=== PATIENT | female | born 1950 | race Caucasian/White ===

== ENCOUNTER 2022-04-07 01:36 | Inpatient (IN) | payer OTHER, MEDICAID ==
[~2022-04-07] VITALS: Ht 172.7 cm; Wt 94.0 kg
[2022-04-07] VITALS (10 sets, daily range): BP systolic 58–151; BP diastolic 30–95
[~2022-04-07 01:36] MED LIST: ALBU1.257 NEB; ALEN70TA74 PO; ALPR0.5T7 PO; BECL0.07 INH; BUPR75TA10 PO; CELE1CAP8 PO; CHOL500023 PO; COMIH INH; HYDR-531 PO; IPRA0.035; NICO21DI24 TD; PAR20T PO; SERDISK IN; TOPI50TA53 PO; TRAZ100T3 PO
[2022-04-07] MEDS ORDERED: MIDAZOLAM HCL 5 MG/ML-1ML VIAL IV ONE (01:45)
[2022-04-07] MEDS: DOBUTamine 1000MCG/ML 250 ML IV SCH ×3 (01:45→13:54)
[2022-04-07] MEDS ORDERED: TERBUTALINE SULFATE 1 MG/ML 1ML VIAL SC ONE (01:45)
[2022-04-07] MEDS ORDERED: methylPREDNISolone SOD SUCC 125 MG/2 ML VL ONE (01:47)
[2022-04-07] MEDS ORDERED: DOBUTamine 1000MCG/ML 250 ML IV ONE (01:52)
[2022-04-07] MEDS ORDERED: IODIXANOL 320MG/ML 100ML BTL IV ONE (01:55)
[2022-04-07 02:22] LABS: Albumin 2.9 g/dL (3.4-5.0); Calcium 9.2 mg/dL (8.5-10.1)
[2022-04-07 02:23] LABS: Hematocrit 45.4 % (36.0-46.0); Hemoglobin 14.2 g/dL (12.2-16.2); Mean Corpuscular Hemoglobin 29.2 pg (28.0-32.0); Mean Corpuscular Hgb Conc. 31.2 g/dL (32.0-36.0); Mean Corpuscular Volume 93.8 fL (80.0-100.0); Red Blood Cells 4.85 10^6/uL (4.0-5.20); Red Cell Distribution Width 15.3 % (11.8-14.3); White Blood Cell 12.7 10^3/uL (4.4-10.8)
[2022-04-07 02:25] LABS: BUN/Creatinine Ratio 13.1; Bilirubin, Total 0.6 mg/dL (0.2-1.0); Total Protein 6.5 g/dL (6.4-8.2)
[2022-04-07 02:31] LABS: Basophils % (manual) 0 (0.0-2.0); Blast Cells 0; Eosinophils % (manual) 0 (0-7); Promyelocytes % 0; Reactive Lymphocytes 0
[2022-04-07] MEDS: MIDAZOLAM DRIP 50 mg/50mL 50 ML IV SCH ×2 (03:15→20:49)
[2022-04-07] MEDS ORDERED: methylPREDNISolone SOD SUCC 125 MG/2 ML VL IV ONE (03:45)
[2022-04-07] MEDS ORDERED: PIPERACILLIN-TAZOB 3.375GM 100 ML IV ONE (04:00)
[2022-04-07] MEDS ORDERED: VANCOMYCIN 1GM/250ML 250 ML IV ONE (04:00)
[2022-04-07] MEDS ORDERED: VANCOMYCIN PER PHARMACY 0 MG IV SCH (04:15)
[2022-04-07] MEDS: SODIUM CHLORIDE 0.9% 1,000 ML IV SCH ×5 (04:15→22:35)
[2022-04-07] MEDS ORDERED: MORPHINE SULFATE INJ 2 MG/ml SYRG IV PRN (04:15)
[2022-04-07] MEDS ORDERED: ONDANSETRON HCL 4 MG/2 ML VIAL IV PRN (04:15)
[2022-04-07] MEDS ORDERED: ACETAMINOPHEN 325 MG TAB PO PRN (04:15)
[2022-04-07 04:21] LABS: Band Neutrophils % (manual) 15; Lymphocytes % (manual) 31 (10.0-50.0); Metamyelocytes % 1; Monocytes % (manual) 8 (0-12); Myelocytes % 1
[2022-04-07 05:11] LABS: Lactic Acid w/Reflex 5.1 mmol/L (0.4-2.0)
[2022-04-07] MEDS ORDERED: PIPERACILLIN-TAZOB 3.375GM 100 ML IV SCH (06:00)
[2022-04-07 06:40] LABS: Basophils # (auto) 0.1 10 ^3/uL (0-0.2); Basophils % (auto) 0.5 % (0.0-2.0); Eosinophils # (auto) 0 10 ^3/uL (0-0.8); Hematocrit 46.6 % (36.0-46.0); Hemoglobin 15.1 g/dL (12.2-16.2); Lymphocytes # (auto) 0.4 10 ^3/uL (0.4-5.4); Lymphocytes % (auto) 3.9 % (10.0-50.0); Mean Corpuscular Hgb Conc. 32.5 g/dL (32.0-36.0); Mean Corpuscular Volume 92.2 fL (80.0-100.0); Monocytes # (auto) 0.7 10 ^3/uL (0-1.3); Monocytes % (auto) 7.1 % (0.0-12.0); Neutrophils # (auto) 9.2 10 ^3/uL (1.6-8.6); Neutrophils % (auto) 88.5 % (37.0-80.0); Nucleated Red Blood Cells % 0.1 %; Red Blood Cells 5.06 10^6/uL (4.0-5.20); Red Cell Distribution Width 15.4 % (11.8-14.3); White Blood Cell 10.4 10^3/uL (4.4-10.8)
[2022-04-07 06:57] LABS: Potassium 3.8 mmol/L (3.5-5.1)
[2022-04-07] MEDS ORDERED: levoFLOXacin 500MG 100 ML IV ONE (07:15)
[2022-04-07 07:41] LABS: Urine Bacteria FEW /hpf (None Seen); Urine Blood 3+ /uL (Negative); Urine WBC 16 /hpf (0 - 5)
[2022-04-07] MEDS ORDERED: IPRATROPIUM BROM 0.5 MG/2.5ML INH SOL NEB PRN (08:45)
[2022-04-07] MEDS ORDERED: ALBUTEROL SULF 2.5 MG/0.5ML(0.5%) NEB SOLN NEB PRN (08:45)
[2022-04-07] MEDS: FUROSEMIDE 20 MG/2 ML VIAL IV SCH (10:39)
[2022-04-07] MEDS: methylPREDNISolone SOD SUCC 40 MG/ML VL IV SCH ×2 (12:10→21:00)
[2022-04-07] MEDS ORDERED: ACETAMINOPHEN 650 mg PER 20.3 mL UD GT PRN (13:15)
[2022-04-07] MEDS: NOREPINEPHRINE 8 MG/250ML KIT 250 ML IV SCH (13:15)
[2022-04-07] MEDS: fentaNYL Drip 2500mCg/250mlNS 250 ML IV SCH ×2 (13:44→15:12)
[2022-04-07] MEDS: IPRATROPIUM BROM 0.5 MG/2.5ML INH SOL NEB SCH (18:54)
[2022-04-07] MEDS: ALBUTEROL SULF 2.5 MG/0.5ML(0.5%) NEB SOLN NEB SCH (18:54)
[2022-04-08] VITALS (72 sets, daily range): BP systolic 88–134; BP diastolic 45–68
[2022-04-08] MEDS: methylPREDNISolone SOD SUCC 40 MG/ML VL IV SCH ×3 (00:22→21:48)
[2022-04-08] MEDS: IPRATROPIUM BROM 0.5 MG/2.5ML INH SOL NEB SCH ×4 (00:53→19:09)
[2022-04-08] MEDS: ALBUTEROL SULF 2.5 MG/0.5ML(0.5%) NEB SOLN NEB SCH ×4 (00:53→19:09)
[2022-04-08] MEDS: NOREPINEPHRINE 8 MG/250ML KIT 250 ML IV SCH (03:04)
[2022-04-08 04:34] LABS: Basophils # (auto) 0 10 ^3/uL (0-0.2); Eosinophils # (auto) 0 10 ^3/uL (0-0.8); Hematocrit 41.7 % (36.0-46.0); Hemoglobin 13.5 g/dL (12.2-16.2); Lymphocytes # (auto) 0.4 10 ^3/uL (0.4-5.4); Lymphocytes % (auto) 2.9 % (10.0-50.0); Mean Corpuscular Hemoglobin 29.3 pg (28.0-32.0); Mean Corpuscular Hgb Conc. 32.3 g/dL (32.0-36.0); Mean Corpuscular Volume 90.7 fL (80.0-100.0); Monocytes # (auto) 0.6 10 ^3/uL (0-1.3); Monocytes % (auto) 4.8 % (0.0-12.0); Neutrophils # (auto) 12.4 10 ^3/uL (1.6-8.6); Neutrophils % (auto) 92.3 % (37.0-80.0); Red Cell Distribution Width 15.1 % (11.8-14.3); White Blood Cell 13.4 10^3/uL (4.4-10.8)
[2022-04-08 04:49] LABS: INR 1.07 (0.9-1.15); Partial Thromboplastin Time 34.9 sec (24.6-33.4)
[2022-04-08 04:53] LABS: Potassium 4.2 mmol/L (3.5-5.1)
[2022-04-08 04:55] LABS: Albumin 2.8 g/dL (3.4-5.0); BUN/Creatinine Ratio 13.4; Calcium 7.7 mg/dL (8.5-10.1)
[2022-04-08 04:58] LABS: Bilirubin, Total 0.6 mg/dL (0.2-1.0)
[2022-04-08] MEDS ORDERED: levoFLOXacin 500MG 100 ML IV SCH (10:00)
[2022-04-08] MEDS: SODIUM CHLORIDE 0.9% 1,000 ML IV SCH ×2 (10:00→14:15)
[2022-04-08] MEDS: FUROSEMIDE 20 MG/2 ML VIAL IV SCH (10:56)
[2022-04-08] MEDS ORDERED: PANTOPRAZOLE 40 MG/10 ML VIAL INJ IV ONE (11:45)
[2022-04-08] MEDS ORDERED: VANCOMYCIN 500 MG in D5W 5% 100 ML IV ONE (13:15)
[2022-04-08] MEDS ORDERED: ALBUMIN 25% 100 ML IV ONE (14:15)
[2022-04-08 14:59] LABS: Protein, Urine 156.9 mg/dL (0.0-11.9)
[2022-04-09] VITALS (105 sets, daily range): BP systolic 87–138; BP diastolic 40–73
[2022-04-09] MEDS: SODIUM CHLORIDE 0.9% 1,000 ML IV SCH ×2 (00:15→09:39)
[2022-04-09] MEDS: ALBUTEROL SULF 2.5 MG/0.5ML(0.5%) NEB SOLN NEB SCH ×3 (00:39→18:21)
[2022-04-09] MEDS: IPRATROPIUM BROM 0.5 MG/2.5ML INH SOL NEB SCH ×3 (00:39→18:21)
[2022-04-09] MEDS: MIDAZOLAM DRIP 50 mg/50mL 50 ML IV SCH (03:15)
[2022-04-09 04:10] LABS: Basophils # (auto) 0 10 ^3/uL (0-0.2); Basophils % (auto) 0.1 % (0.0-2.0); Eosinophils # (auto) 0 10 ^3/uL (0-0.8); Hematocrit 34.7 % (36.0-46.0); Hemoglobin 11.2 g/dL (12.2-16.2); Lymphocytes # (auto) 0.2 10 ^3/uL (0.4-5.4); Mean Corpuscular Hemoglobin 29.2 pg (28.0-32.0); Mean Corpuscular Hgb Conc. 32.2 g/dL (32.0-36.0); Mean Corpuscular Volume 90.6 fL (80.0-100.0); Monocytes # (auto) 0.5 10 ^3/uL (0-1.3); Monocytes % (auto) 5.3 % (0.0-12.0); Neutrophils # (auto) 8.7 10 ^3/uL (1.6-8.6); Neutrophils % (auto) 92.6 % (37.0-80.0); Nucleated Red Blood Cells % 0.1 %; Red Blood Cells 3.83 10^6/uL (4.0-5.20); Red Cell Distribution Width 15.4 % (11.8-14.3); White Blood Cell 9.4 10^3/uL (4.4-10.8)
[2022-04-09 04:35] LABS: Calcium 7.7 mg/dL (8.5-10.1); Potassium 3.9 mmol/L (3.5-5.1)
[2022-04-09 04:40] LABS: BUN/Creatinine Ratio 12.4; Bilirubin, Total 0.6 mg/dL (0.2-1.0); Total Protein 6.5 g/dL (6.4-8.2)
[2022-04-09] MEDS: NOREPINEPHRINE 8 MG/250ML KIT 250 ML IV SCH (07:27)
[2022-04-09] MEDS ORDERED: AMIODARONE HCL 150 MG in D5W 5% 100 ML IV ONE (08:30)
[2022-04-09] MEDS ORDERED: AMIODARONE 450mg/250ml AE 250 ML IV SCH (08:45)
[2022-04-09] MEDS ORDERED: DIGOXIN (250MCG/ML) 2 ML AMPULE IV ONE (09:00)
[2022-04-09] MEDS: fentaNYL Drip 2500mCg/250mlNS 250 ML IV SCH (09:30)
[2022-04-09] MEDS: methylPREDNISolone SOD SUCC 40 MG/ML VL IV SCH ×2 (09:36→22:03)
[2022-04-09] MEDS: DOBUTamine 1000MCG/ML 250 ML IV SCH (09:37)
[2022-04-09] MEDS: PANTOPRAZOLE 40 MG/10 ML VIAL INJ IV SCH (09:37)
[2022-04-09] MEDS: ENOXAPARIN SOD 30 MG/0.3 ML SYRINGE SC SCH (09:38)
[2022-04-09] MEDS ORDERED: levoFLOXacin 750MG 150 ML IV SCH (10:00)
[2022-04-09] MEDS ORDERED: SODIUM BICARBONATE 8.4 % INJ 50ML VIAL IV STA ×2 (10:03→13:34)
[2022-04-09] MEDS ORDERED: SODIUM BICARB 50ML SYR 75 ML in SOD CHL 0.45% 1,000 ML IV SCH (13:00)
[2022-04-09] MEDS ORDERED: BUMETANIDE 2.5mg/10ml (0.25 mg/ml) INJ IV ONE (13:15)
[2022-04-09] MEDS: SODIUM BICARB 50ML SYR 75 ML in SOD CHL 0.45% 1,000 ML IV SCH (15:43)
[2022-04-09] MEDS: AMIODARONE 450mg/250ml AE 250 ML IV SCH (15:44)
[2022-04-09] MEDS ORDERED: SODIUM BICARBONATE 8.4 % INJ 50ML VIAL IV ONE (18:00)
[2022-04-10] VITALS (108 sets, daily range): BP systolic 59–129; BP diastolic 28–82
[2022-04-10] MEDS: ALBUTEROL SULF 2.5 MG/0.5ML(0.5%) NEB SOLN NEB SCH ×4 (00:15→18:33)
[2022-04-10] MEDS: IPRATROPIUM BROM 0.5 MG/2.5ML INH SOL NEB SCH ×4 (00:15→18:33)
[2022-04-10] MEDS: SODIUM BICARB 50ML SYR 75 ML in SOD CHL 0.45% 1,000 ML IV SCH ×3 (01:40→21:55)
[2022-04-10] MEDS: MIDAZOLAM DRIP 50 mg/50mL 50 ML IV SCH (03:15)
[2022-04-10 04:07] LABS: Hematocrit 37.3 % (36.0-46.0); Hemoglobin 12.4 g/dL (12.2-16.2); Mean Corpuscular Hemoglobin 29.7 pg (28.0-32.0); Mean Corpuscular Hgb Conc. 33.3 g/dL (32.0-36.0); Mean Corpuscular Volume 89.2 fL (80.0-100.0); Red Blood Cells 4.19 10^6/uL (4.0-5.20); Red Cell Distribution Width 15.5 % (11.8-14.3)
[2022-04-10] MEDS: NOREPINEPHRINE 8 MG/250ML KIT 250 ML IV SCH ×2 (04:15→13:20)
[2022-04-10 04:24] LABS: Potassium 3.7 mmol/L (3.5-5.1)
[2022-04-10 04:25] LABS: Basophils % (manual) 0 (0.0-2.0); Blast Cells 0; Eosinophils % (manual) 0 (0-7); Metamyelocytes % 0; Myelocytes % 0; Promyelocytes % 0; Reactive Lymphocytes 0
[2022-04-10 06:00] LABS: Band Neutrophils % (manual) 19; Lymphocytes % (manual) 5 (10.0-50.0); Monocytes % (manual) 6 (0-12)
[2022-04-10] MEDS: DOBUTamine 1000MCG/ML 250 ML IV SCH (06:18)
[2022-04-10] MEDS: AMIODARONE 450mg/250ml AE 250 ML IV SCH ×2 (08:17→20:45)
[2022-04-10] MEDS: FUROSEMIDE INJECTION 100 MG in SODIUM CHL 0.9% 100 ML IV SCH ×3 (08:58→19:46)
[2022-04-10] MEDS: fentaNYL Drip 2500mCg/250mlNS 250 ML IV SCH (09:30)
[2022-04-10] MEDS: PANTOPRAZOLE 40 MG/10 ML VIAL INJ IV SCH (10:41)
[2022-04-10] MEDS: methylPREDNISolone SOD SUCC 40 MG/ML VL IV SCH ×2 (10:41→21:55)
[2022-04-10] MEDS: ENOXAPARIN SOD 30 MG/0.3 ML SYRINGE SC SCH (10:41)
[2022-04-11] VITALS (106 sets, daily range): BP systolic 103–148; BP diastolic 43–65
[2022-04-11] MEDS: IPRATROPIUM BROM 0.5 MG/2.5ML INH SOL NEB SCH ×4 (00:11→18:46)
[2022-04-11] MEDS: ALBUTEROL SULF 2.5 MG/0.5ML(0.5%) NEB SOLN NEB SCH ×4 (00:11→18:46)
[2022-04-11] MEDS: NOREPINEPHRINE 8 MG/250ML KIT 250 ML IV SCH ×2 (02:10→12:32)
[2022-04-11] MEDS: AMIODARONE 450mg/250ml AE 250 ML IV SCH ×2 (02:50→15:08)
[2022-04-11] MEDS: MIDAZOLAM DRIP 50 mg/50mL 50 ML IV SCH (03:15)
[2022-04-11] MEDS: DOBUTamine 1000MCG/ML 250 ML IV SCH ×2 (03:36→22:53)
[2022-04-11 04:15] LABS: Basophils # (auto) 0 10 ^3/uL (0-0.2); Eosinophils # (auto) 0 10 ^3/uL (0-0.8); Eosinophils % (auto) 0.2 % (0.0-7.0); Hematocrit 35.2 % (36.0-46.0); Hemoglobin 11.2 g/dL (12.2-16.2); Lymphocytes # (auto) 0.2 10 ^3/uL (0.4-5.4); Lymphocytes % (auto) 1.5 % (10.0-50.0); Mean Corpuscular Hemoglobin 28.4 pg (28.0-32.0); Mean Corpuscular Hgb Conc. 31.7 g/dL (32.0-36.0); Mean Corpuscular Volume 89.6 fL (80.0-100.0); Monocytes # (auto) 0.5 10 ^3/uL (0-1.3); Monocytes % (auto) 4.2 % (0.0-12.0); Neutrophils # (auto) 10.7 10 ^3/uL (1.6-8.6); Neutrophils % (auto) 94.1 % (37.0-80.0); Nucleated Red Blood Cells % 0.1 %; Red Blood Cells 3.93 10^6/uL (4.0-5.20); Red Cell Distribution Width 15.3 % (11.8-14.3); White Blood Cell 11.4 10^3/uL (4.4-10.8)
[2022-04-11] MEDS: FUROSEMIDE INJECTION 100 MG in SODIUM CHL 0.9% 100 ML IV SCH ×2 (04:27→14:52)
[2022-04-11 04:31] LABS: Potassium 4.1 mmol/L (3.5-5.1)
[2022-04-11 04:39] LABS: BUN/Creatinine Ratio 10.7; Calcium 7.7 mg/dL (8.5-10.1)
[2022-04-11] MEDS: fentaNYL Drip 2500mCg/250mlNS 250 ML IV SCH (09:30)
[2022-04-11] MEDS: ENOXAPARIN SOD 30 MG/0.3 ML SYRINGE SC SCH (09:36)
[2022-04-11] MEDS: methylPREDNISolone SOD SUCC 40 MG/ML VL IV SCH ×2 (09:36→21:36)
[2022-04-11] MEDS: PANTOPRAZOLE 40 MG/10 ML VIAL INJ IV SCH (09:36)
[2022-04-11] MEDS: SODIUM BICARB 50ML SYR 75 ML in SOD CHL 0.45% 1,000 ML IV SCH ×2 (09:37→21:36)
[2022-04-11] MEDS: levoFLOXacin 500MG 100 ML IV SCH (09:48)
[2022-04-12] VITALS (104 sets, daily range): BP systolic 113–173; BP diastolic 42–77
[2022-04-12] MEDS: IPRATROPIUM BROM 0.5 MG/2.5ML INH SOL NEB SCH ×4 (00:14→18:14)
[2022-04-12] MEDS: ALBUTEROL SULF 2.5 MG/0.5ML(0.5%) NEB SOLN NEB SCH ×4 (00:14→18:14)
[2022-04-12] MEDS: FUROSEMIDE INJECTION 100 MG in SODIUM CHL 0.9% 100 ML IV SCH ×3 (00:38→19:30)
[2022-04-12] MEDS: MIDAZOLAM DRIP 50 mg/50mL 50 ML IV SCH (03:15)
[2022-04-12 03:32] LABS: Basophils # (auto) 0 10 ^3/uL (0-0.2); Eosinophils # (auto) 0 10 ^3/uL (0-0.8); Hematocrit 31.7 % (36.0-46.0); Hemoglobin 10.1 g/dL (12.2-16.2); Lymphocytes # (auto) 0.1 10 ^3/uL (0.4-5.4); Lymphocytes % (auto) 1.4 % (10.0-50.0); Mean Corpuscular Hemoglobin 28.4 pg (28.0-32.0); Mean Corpuscular Hgb Conc. 31.9 g/dL (32.0-36.0); Mean Corpuscular Volume 89.1 fL (80.0-100.0); Monocytes # (auto) 0.5 10 ^3/uL (0-1.3); Monocytes % (auto) 4.5 % (0.0-12.0); Neutrophils # (auto) 9.9 10 ^3/uL (1.6-8.6); Neutrophils % (auto) 94.1 % (37.0-80.0); Red Blood Cells 3.55 10^6/uL (4.0-5.20); Red Cell Distribution Width 15.3 % (11.8-14.3); White Blood Cell 10.5 10^3/uL (4.4-10.8)
[2022-04-12 04:00] LABS: BUN/Creatinine Ratio 12.2; Calcium 7.9 mg/dL (8.5-10.1); Potassium 4.5 mmol/L (3.5-5.1)
[2022-04-12] MEDS: SODIUM BICARB 50ML SYR 75 ML in SOD CHL 0.45% 1,000 ML IV SCH ×2 (06:15→08:01)
[2022-04-12] MEDS: AMIODARONE 450mg/250ml AE 250 ML IV SCH ×3 (06:55→22:32)
[2022-04-12] MEDS: fentaNYL Drip 2500mCg/250mlNS 250 ML IV SCH (09:30)
[2022-04-12] MEDS ORDERED: DIGOXIN (250MCG/ML) 2 ML AMPULE IV SCH (10:00)
[2022-04-12] MEDS: ENOXAPARIN SOD 30 MG/0.3 ML SYRINGE SC SCH (10:31)
[2022-04-12] MEDS: PANTOPRAZOLE 40 MG/10 ML VIAL INJ IV SCH (10:32)
[2022-04-12] MEDS: methylPREDNISolone SOD SUCC 40 MG/ML VL IV SCH (10:32)
[2022-04-12] MEDS ORDERED: SODIUM BICARB 50ML SYR 75 ML in SOD CHL 0.45% 1,000 ML IV SCH (11:15)
[2022-04-12] MEDS: NOREPINEPHRINE 8 MG/250ML KIT 250 ML IV SCH (13:15)
[2022-04-13] VITALS (84 sets, daily range): BP systolic 109–145; BP diastolic 44–74
[2022-04-13] MEDS: ALBUTEROL SULF 2.5 MG/0.5ML(0.5%) NEB SOLN NEB SCH ×4 (00:07→18:55)
[2022-04-13] MEDS: IPRATROPIUM BROM 0.5 MG/2.5ML INH SOL NEB SCH ×4 (00:07→18:55)
[2022-04-13] MEDS: MIDAZOLAM DRIP 50 mg/50mL 50 ML IV SCH (03:15)
[2022-04-13 03:58] LABS: Anion Gap 13 (5-15); BUN/Creatinine Ratio 14.4; Calcium 8.2 mg/dL (8.5-10.1); Carbon Dioxide 28 mmol/L (21-32); Chloride 93 mmol/L (98-107); GFR African American 8 mL/min; GFR Non-African American 7 mL/min; Glucose 318 mg/dL (74-106); Potassium 5.1 mmol/L (3.5-5.1); Sodium 134 mmol/L (136-145)
[2022-04-13 04:01] LABS: Basophils # (auto) 0 10 ^3/uL (0-0.2); Eosinophils # (auto) 0 10 ^3/uL (0-0.8); Hematocrit 31.9 % (36.0-46.0); Hemoglobin 10.3 g/dL (12.2-16.2); Lymphocytes # (auto) 0.2 10 ^3/uL (0.4-5.4); Mean Corpuscular Hemoglobin 29.9 pg (28.0-32.0); Mean Corpuscular Hgb Conc. 32.5 g/dL (32.0-36.0); Mean Corpuscular Volume 92.1 fL (80.0-100.0); Monocytes # (auto) 0.6 10 ^3/uL (0-1.3); Monocytes % (auto) 5.6 % (0.0-12.0); Neutrophils # (auto) 10.6 10 ^3/uL (1.6-8.6); Neutrophils % (auto) 92.4 % (37.0-80.0); Red Blood Cells 3.46 10^6/uL (4.0-5.20); Red Cell Distribution Width 15.4 % (11.8-14.3); White Blood Cell 11.4 10^3/uL (4.4-10.8)
[2022-04-13 05:02] LABS: Blood Urea Nitrogen 93 mg/dL (7-18)
[2022-04-13] MEDS: FUROSEMIDE INJECTION 100 MG in SODIUM CHL 0.9% 100 ML IV SCH ×3 (05:30→15:30)
[2022-04-13] MEDS: AMIODARONE 450mg/250ml AE 250 ML IV SCH ×3 (08:45→13:30)
[2022-04-13] MEDS: ENOXAPARIN SOD 30 MG/0.3 ML SYRINGE SC SCH (09:05)
[2022-04-13] MEDS: levoFLOXacin 500MG 100 ML IV SCH (09:05)
[2022-04-13] MEDS: PANTOPRAZOLE 40 MG/10 ML VIAL INJ IV SCH (09:05)
[2022-04-13] MEDS: NOREPINEPHRINE 8 MG/250ML KIT 250 ML IV SCH (13:15)
[2022-04-13] MEDS ORDERED: AMIODARONE HCL 200 MG TAB PO ONE (15:30)
[2022-04-13] MEDS: AMIODARONE HCL 200 MG TAB PO SCH (21:32)
[2022-04-14] VITALS (83 sets, daily range): BP systolic 94–159; BP diastolic 32–67
[2022-04-14] MEDS: IPRATROPIUM BROM 0.5 MG/2.5ML INH SOL NEB SCH ×4 (00:13→20:19)
[2022-04-14] MEDS: ALBUTEROL SULF 2.5 MG/0.5ML(0.5%) NEB SOLN NEB SCH ×4 (00:13→20:19)
[2022-04-14] MEDS: FUROSEMIDE INJECTION 100 MG in SODIUM CHL 0.9% 100 ML IV SCH ×3 (02:26→20:11)
[2022-04-14 03:33] LABS: Basophils # (auto) 0 10 ^3/uL (0-0.2); Eosinophils # (auto) 0 10 ^3/uL (0-0.8); Hematocrit 30.4 % (36.0-46.0); Hemoglobin 9.9 g/dL (12.2-16.2); Lymphocytes # (auto) 0.3 10 ^3/uL (0.4-5.4); Lymphocytes % (auto) 2.5 % (10.0-50.0); Mean Corpuscular Hemoglobin 28.9 pg (28.0-32.0); Mean Corpuscular Hgb Conc. 32.4 g/dL (32.0-36.0); Mean Corpuscular Volume 89.1 fL (80.0-100.0); Monocytes # (auto) 0.6 10 ^3/uL (0-1.3); Monocytes % (auto) 5.6 % (0.0-12.0); Neutrophils # (auto) 10.5 10 ^3/uL (1.6-8.6); Neutrophils % (auto) 91.9 % (37.0-80.0); Nucleated Red Blood Cells % 0.1 %; Red Blood Cells 3.41 10^6/uL (4.0-5.20); Red Cell Distribution Width 15.5 % (11.8-14.3); White Blood Cell 11.5 10^3/uL (4.4-10.8)
[2022-04-14 03:52] LABS: Albumin 1.9 g/dL (3.4-5.0); Calcium 8.9 mg/dL (8.5-10.1)
[2022-04-14 03:57] LABS: Bilirubin, Total 0.5 mg/dL (0.2-1.0); Total Protein 5.9 g/dL (6.4-8.2)
[2022-04-14 04:22] LABS: BUN/Creatinine Ratio 17.7; Potassium 5.9 mmol/L (3.5-5.1)
[2022-04-14] MEDS ORDERED: SODIUM ZIRCONIUM CYCL 10 GM PAK PO ONE (04:30)
[2022-04-14] MEDS: ENOXAPARIN SOD 30 MG/0.3 ML SYRINGE SC SCH (09:23)
[2022-04-14] MEDS: PANTOPRAZOLE 40 MG/10 ML VIAL INJ IV SCH (09:23)
[2022-04-14] MEDS: AMIODARONE HCL 200 MG TAB PO SCH ×2 (09:23→22:28)
[2022-04-14] MEDS: SODIUM CHLORIDE 0.9% 1,000 ML IV SCH (12:30)
[2022-04-14] MEDS: NOREPINEPHRINE 8 MG/250ML KIT 250 ML IV SCH ×2 (13:15→21:04)
[2022-04-14] MEDS ORDERED: DEXTROSE (50%) 50ML SYRG IV ONE (14:45)
[2022-04-14] MEDS: AMIODARONE 450mg/250ml AE 250 ML IV SCH (14:45)
[2022-04-14] MEDS ORDERED: InsuLIN REG 1unit/0.01ml Soln (100units/ml) IV ONE (14:45)
[2022-04-14] MEDS ORDERED: ALBUTEROL SULF 2.5 MG/0.5ML(0.5%) NEB SOLN NEB ONE (14:45)
[2022-04-14] MEDS ORDERED: CALCIUM GLUC 1,000mg/50ml-NS 50 ML IV ONE (14:45)
[2022-04-15] VITALS (64 sets, daily range): BP systolic 104–140; BP diastolic 36–48
[2022-04-15] MEDS: ALBUTEROL SULF 2.5 MG/0.5ML(0.5%) NEB SOLN NEB SCH ×3 (00:02→12:36)
[2022-04-15] MEDS: IPRATROPIUM BROM 0.5 MG/2.5ML INH SOL NEB SCH ×3 (00:03→12:36)
[2022-04-15 04:01] LABS: Hematocrit 33.2 % (36.0-46.0); Hemoglobin 10.6 g/dL (12.2-16.2); Mean Corpuscular Hemoglobin 28.5 pg (28.0-32.0); Mean Corpuscular Hgb Conc. 31.9 g/dL (32.0-36.0); Mean Corpuscular Volume 89.3 fL (80.0-100.0); Red Blood Cells 3.71 10^6/uL (4.0-5.20); Red Cell Distribution Width 15.3 % (11.8-14.3); White Blood Cell 15.4 10^3/uL (4.4-10.8)
[2022-04-15 04:15] LABS: Calcium 8.8 mg/dL (8.5-10.1)
[2022-04-15 04:17] LABS: BUN/Creatinine Ratio 19.8
[2022-04-15] MEDS ORDERED: DEXTROSE (50%) 50ML SYRG IV ONE ×2 (05:00→07:00)
[2022-04-15] MEDS ORDERED: InsuLIN REG 1unit/0.01ml Soln (100units/ml) IV ONE (05:00)
[2022-04-15] MEDS ORDERED: CALCIUM GLUC 1,000mg/50ml-NS 50 ML IV ONE (05:00)
[2022-04-15] MEDS ORDERED: SODIUM ZIRCONIUM CYCL 10 GM PAK PO ONE (05:00)
[2022-04-15] MEDS ORDERED: ALBUTEROL SULF 2.5 MG/0.5ML(0.5%) NEB SOLN NEB ONE (05:15)
[2022-04-15] MEDS: AMIODARONE 450mg/250ml AE 250 ML IV SCH (05:45)
[2022-04-15] MEDS: SODIUM CHLORIDE 0.9% 1,000 ML IV SCH (05:50)
[2022-04-15] MEDS: FUROSEMIDE INJECTION 100 MG in SODIUM CHL 0.9% 100 ML IV SCH ×2 (06:41→14:59)
[2022-04-15] MEDS ORDERED: DEXTROSE 50% SYRINGE 50 ML IV ONE (06:46)
[2022-04-15 07:56] LABS: Basophils % (manual) 0 (0.0-2.0); Blast Cells 0; Eosinophils % (manual) 0 (0-7); Lymphocytes % (manual) 0 (10.0-50.0); Metamyelocytes % 0; Myelocytes % 0; Promyelocytes % 0; Reactive Lymphocytes 0
[2022-04-15 08:16] LABS: Band Neutrophils % (manual) 28; Monocytes % (manual) 4 (0-12)
[2022-04-15] MEDS: PANTOPRAZOLE 40 MG/10 ML VIAL INJ IV SCH (10:00)
[2022-04-15] MEDS: levoFLOXacin 500MG 100 ML IV SCH (10:00)
[2022-04-15] MEDS: ENOXAPARIN SOD 30 MG/0.3 ML SYRINGE SC SCH (10:00)
[2022-04-15] MEDS: AMIODARONE HCL 200 MG TAB PO SCH (10:00)
== END 2022-04-15 16:10 | DRG 207 ==
LOC: EDBD 01:36 → ER 01:36 → OVERFLOW 04:11 → ICU WEST 04-08 07:07
PROVIDERS: ADMIT Hospitalist; ATTEND Internal Medicine
PROC: 5A1955Z Respiratory Ventilation, Greater than 96 Consecutive Hours (ICD-10-PCS; principal; 2022-04-07)
PROC: 0BH17EZ Insertion of Endotracheal Airway into Trachea, Via Natural or Artificial Opening (ICD-10-PCS; 2022-04-07)
PROC: 5A12012 Performance of Cardiac Output, Single, Manual (ICD-10-PCS; 2022-04-07)
DX: J96.21 Acute and chronic respiratory failure with hypoxia (principal); G93.41 Metabolic encephalopathy; G93.5 Compression of brain; N17.0 Acute kidney failure with tubular necrosis; J15.9 Unspecified bacterial pneumonia; I50.31 Acute diastolic (congestive) heart failure; J18.9 Pneumonia, unspecified organism; J44.1 Chronic obstructive pulmonary disease with (acute) exacerbation; E87.4 Mixed disorder of acid-base balance; G93.1 Anoxic brain damage, not elsewhere classified; I31.39 Other pericardial effusion (noninflammatory); J44.0 Chronic obstructive pulmonary disease with (acute) lower respiratory infection; J98.11 Atelectasis; Z20.822 Contact with and (suspected) exposure to COVID-19; I46.8 Cardiac arrest due to other underlying condition; E11.22 Type 2 diabetes mellitus with diabetic chronic kidney disease; E11.65 Type 2 diabetes mellitus with hyperglycemia; I48.91 Unspecified atrial fibrillation; N18.9 Chronic kidney disease, unspecified; K74.60 Unspecified cirrhosis of liver; E87.5 Hyperkalemia; N14.11 Contrast-induced nephropathy; T50.8X5A Adverse effect of diagnostic agents, initial encounter; Z88.0 Allergy status to penicillin; Z85.3 Personal history of malignant neoplasm of breast; Y92.89 Other specified places as the place of occurrence of the external cause
CPT/HCPCS: 31500; 36415; 36556; 36600; 70450; 71045; 71260; 72125; 74176; 74177; 76775; 80048; 80053; 80202; 81001; 82570; 82805; 82947; 82962; 83036; 83605; 83735; 83880; 83970; 84100; 84132; 84156; 84300; 84484; 85007; 85025; 85027; 85610; 85730; 86850; 86900; 86901; 87040; 87070; 87077; 87081; 87086; 87186; 87205; 87426; 92950; 93005; 93306; 93971; 94002; 94003; 94640; 95819; 96365; 96375; 99291; C9113; G0378; J1956; J2250; J7042; J7060; P9047; Q9967

== ENCOUNTER 2022-04-15 16:10 | Inpatient (IN) | payer OTHER ==
[~2022-04-15] VITALS: Ht 161.5 cm; Wt 87.1 kg
[2022-04-15] VITALS (16 sets, daily range): BP systolic 110–154; BP diastolic 38–52
[2022-04-15] MEDS ORDERED: VASOPRESSIN 50 UNITS in D5W 5% 247.5 ML IV SCH ×3 (18:30→23:00)
[2022-04-15] MEDS ORDERED: InsuLIN REG 1unit/0.01ml Soln (100units/ml) IV ONE (19:15)
[2022-04-15] MEDS ORDERED: DEXTROSE (50%) 50ML SYRG IV ONE (19:15)
[2022-04-15] MEDS ORDERED: VANCOMYCIN 1,500 MG in D5W 5% 250 ML IV SCH (19:15)
[2022-04-15] MEDS ORDERED: DOBUTamine 1000MCG/ML 250 ML IV SCH (19:15)
[2022-04-15] MEDS ORDERED: SODIUM ZIRCONIUM CYCL 10 GM PAK PO ONE (19:15)
[2022-04-15 19:22] LABS: Basophils # (auto) 0.1 10 ^3/uL (0-0.2); Basophils % (auto) 0.3 % (0.0-2.0); Eosinophils # (auto) 0.1 10 ^3/uL (0-0.8); Eosinophils % (auto) 0.4 % (0.0-7.0); Hematocrit 32.3 % (36.0-46.0); Hemoglobin 10.4 g/dL (12.2-16.2); Lymphocytes # (auto) 0.3 10 ^3/uL (0.4-5.4); Lymphocytes % (auto) 1.6 % (10.0-50.0); Mean Corpuscular Hemoglobin 28.8 pg (28.0-32.0); Mean Corpuscular Hgb Conc. 32.1 g/dL (32.0-36.0); Mean Corpuscular Volume 89.6 fL (80.0-100.0); Monocytes # (auto) 0.6 10 ^3/uL (0-1.3); Monocytes % (auto) 3.3 % (0.0-12.0); Neutrophils # (auto) 15.7 10 ^3/uL (1.6-8.6); Neutrophils % (auto) 94.4 % (37.0-80.0); Nucleated Red Blood Cells % 0.1 %; Red Cell Distribution Width 15.7 % (11.8-14.3); White Blood Cell 16.6 10^3/uL (4.4-10.8)
[2022-04-15] MEDS ORDERED: HETASTARCH 500 ML IV SCH ×3 (19:30→20:15)
[2022-04-15 19:39] LABS: Albumin 1.6 g/dL (3.4-5.0); Calcium 8.9 mg/dL (8.5-10.1)
[2022-04-15 19:43] LABS: BUN/Creatinine Ratio 20.6; Bilirubin, Total 0.7 mg/dL (0.2-1.0)
[2022-04-15 20:20] LABS: Potassium 6.6 mmol/L (3.5-5.1)
[2022-04-15] MEDS ORDERED: DOPamine 1600MCG/ML D5W 250 ML IV SCH ×2 (21:30→22:15)
[2022-04-15] MEDS ORDERED: FUROSEMIDE 100 MG/10ML VIAL IV STA (22:27)
[2022-04-15] MEDS: DOPamine 1600MCG/ML D5W 250 ML IV SCH (23:00)
[2022-04-16] VITALS (68 sets, daily range): BP systolic 74–187; BP diastolic 26–89
[2022-04-16] MEDS: MEROPENEM 500MG IVPB 50 ML IV SCH ×3 (00:28→16:23)
[2022-04-16] MEDS: VASOPRESSIN 50 UNITS in D5W 5% 247.5 ML IV SCH ×2 (01:15→17:27)
[2022-04-16 02:32] LABS: Hematocrit 28.7 % (36.0-46.0); Hemoglobin 9.3 g/dL (12.2-16.2); Mean Corpuscular Hemoglobin 28.7 pg (28.0-32.0); Mean Corpuscular Hgb Conc. 32.6 g/dL (32.0-36.0); Mean Corpuscular Volume 88.2 fL (80.0-100.0); Red Blood Cells 3.25 10^6/uL (4.0-5.20); White Blood Cell 15.6 10^3/uL (4.4-10.8)
[2022-04-16 02:34] LABS: Basophils % (manual) 0 (0.0-2.0); Blast Cells 0; Eosinophils % (manual) 0 (0-7); Lymphocytes % (manual) 0 (10.0-50.0); Metamyelocytes % 0; Myelocytes % 0; Promyelocytes % 0; Reactive Lymphocytes 0
[2022-04-16 02:50] LABS: Albumin 1.4 g/dL (3.4-5.0); BUN/Creatinine Ratio 22.1; Calcium 8.7 mg/dL (8.5-10.1); Magnesium 2.3 mg/dL (1.6-2.6)
[2022-04-16 02:52] LABS: Bilirubin, Total 0.6 mg/dL (0.2-1.0); Total Protein 5.3 g/dL (6.4-8.2)
[2022-04-16 02:57] LABS: Band Neutrophils % (manual) 2; Monocytes % (manual) 2 (0-12)
[2022-04-16 03:10] LABS: Phosphorus 9.2 mg/dL (2.5-4.90)
[2022-04-16] MEDS ORDERED: SODIUM ZIRCONIUM CYCL 10 GM PAK GT STA ×2 (03:32→09:30)
[2022-04-16] MEDS ORDERED: DEXTROSE 10% 1,000 ML IV ONE (04:20)
[2022-04-16] MEDS ORDERED: DEXTROSE 10% 1,000 ML IV STA (04:21)
[2022-04-16 08:50] LABS: Basophils # (auto) 0 10 ^3/uL (0-0.2); Basophils % (auto) 0.2 % (0.0-2.0); Eosinophils # (auto) 0.1 10 ^3/uL (0-0.8); Eosinophils % (auto) 0.4 % (0.0-7.0); Hematocrit 29.1 % (36.0-46.0); Hemoglobin 9.7 g/dL (12.2-16.2); Lymphocytes # (auto) 0.2 10 ^3/uL (0.4-5.4); Lymphocytes % (auto) 1.2 % (10.0-50.0); Mean Corpuscular Hemoglobin 29.2 pg (28.0-32.0); Mean Corpuscular Hgb Conc. 33.3 g/dL (32.0-36.0); Mean Corpuscular Volume 87.8 fL (80.0-100.0); Monocytes # (auto) 0.6 10 ^3/uL (0-1.3); Monocytes % (auto) 4.1 % (0.0-12.0); Neutrophils # (auto) 12.7 10 ^3/uL (1.6-8.6); Neutrophils % (auto) 94.1 % (37.0-80.0); Red Blood Cells 3.32 10^6/uL (4.0-5.20); Red Cell Distribution Width 15.1 % (11.8-14.3); White Blood Cell 13.5 10^3/uL (4.4-10.8)
[2022-04-16 08:53] LABS: Urine Bacteria FEW /hpf (None Seen); Urine Blood 3+ /uL (Negative); Urine Budding Yeast FEW /hpf (None Seen); Urine WBC 2 /hpf (0 - 5)
[2022-04-16 09:06] LABS: Albumin 1.6 g/dL (3.4-5.0); Calcium 9.1 mg/dL (8.5-10.1); Magnesium 2.4 mg/dL (1.6-2.6)
[2022-04-16 09:10] LABS: BUN/Creatinine Ratio 24.4; Bilirubin, Total 0.8 mg/dL (0.2-1.0); Total Protein 5.7 g/dL (6.4-8.2)
[2022-04-16 09:24] LABS: Phosphorus 9.5 mg/dL (2.5-4.90); Potassium 6.6 mmol/L (3.5-5.1)
[2022-04-16] MEDS ORDERED: DEXTROSE (50%) 50ML SYRG IV STA (09:30)
[2022-04-16] MEDS ORDERED: metOLazone 5 MG TAB GT STA (09:30)
[2022-04-16] MEDS ORDERED: InsuLIN REG 1unit/0.01ml Soln (100units/ml) IV STA (09:30)
[2022-04-16] MEDS ORDERED: FUROSEMIDE 100 MG/10ML VIAL IV ONE (10:00)
[2022-04-16] MEDS ORDERED: ALBUMIN 25% 100 ML IV ONE (10:45)
[2022-04-16] MEDS ORDERED: metOLazone 5 MG TAB PO SCH (14:30)
[2022-04-16] MEDS ORDERED: FUROSEMIDE 100 MG/10ML VIAL IV SCH (15:00)
[2022-04-16 15:02] LABS: Basophils # (auto) 0 10 ^3/uL (0-0.2); Eosinophils # (auto) 0.1 10 ^3/uL (0-0.8); Eosinophils % (auto) 0.6 % (0.0-7.0); Hematocrit 26.1 % (36.0-46.0); Hemoglobin 8.9 g/dL (12.2-16.2); Lymphocytes # (auto) 0.2 10 ^3/uL (0.4-5.4); Monocytes # (auto) 0.5 10 ^3/uL (0-1.3)
[2022-04-16 15:04] LABS: Lymphocytes % (auto) 1.9 % (10.0-50.0); Mean Corpuscular Hgb Conc. 34.2 g/dL (32.0-36.0); Mean Corpuscular Volume 87.7 fL (80.0-100.0); Monocytes % (auto) 4.5 % (0.0-12.0); Neutrophils # (auto) 10.4 10 ^3/uL (1.6-8.6); Nucleated Red Blood Cells % 0.1 %; Red Blood Cells 2.98 10^6/uL (4.0-5.20); Red Cell Distribution Width 15.1 % (11.8-14.3); White Blood Cell 11.2 10^3/uL (4.4-10.8)
[2022-04-16 15:07] LABS: Magnesium 2.1 mg/dL (1.6-2.6)
[2022-04-16 15:18] LABS: Phosphorus 8.8 mg/dL (2.5-4.90)
[2022-04-16 15:20] LABS: INR 1.38 (0.9-1.15)
[2022-04-16 15:54] LABS: BUN/Creatinine Ratio 23.2; Calcium 8.2 mg/dL (8.5-10.1)
[2022-04-16] MEDS ORDERED: methylPREDNISolone SOD SUCC 125 MG/2 ML VL IV SCH (16:00)
[2022-04-16] MEDS ORDERED: THIAMINE 100mg/ml INJ (200mg/2ml VIAL) IV ONE (16:00)
[2022-04-16 16:13] LABS: Urine Bacteria FEW /hpf (None Seen); Urine Blood 3+ /uL (Negative); Urine Budding Yeast MODERATE /hpf (None Seen); Urine Specific Gravity 1.008 (1.001-1.035); Urine WBC 6 /hpf (0 - 5)
[2022-04-16] MEDS ORDERED: NOREPINEPHRINE 8 MG/250ML KIT 250 ML IV SCH (16:45)
[2022-04-16] MEDS ORDERED: InsuLIN REG 1unit/0.01ml Soln (100units/ml) IV ONE (17:00)
[2022-04-16] MEDS ORDERED: DEXTROSE (50%) 50ML SYRG IV ONE (17:00)
[2022-04-16] MEDS ORDERED: NOREPINEPHRINE 8 MG/250ML KIT 250 ML IV ONE (17:54)
[2022-04-16] MEDS: DOPamine 1600MCG/ML D5W 250 ML IV SCH (18:01)
[2022-04-16 18:44] LABS: Albumin 1.9 g/dL (3.4-5.0); BUN/Creatinine Ratio 23.8; Calcium 8.8 mg/dL (8.5-10.1); Potassium 5.5 mmol/L (3.5-5.1)
[2022-04-16 18:51] LABS: Bilirubin, Direct 0.4 mg/dL (0-0.2)
[2022-04-16 18:52] LABS: Bilirubin, Total 0.9 mg/dL (0.2-1.0); Total Protein 5.6 g/dL (6.4-8.2)
== END 2022-04-16 19:10 ==
LOC: ICU WEST 16:10
PROVIDERS: ADMIT Internal Medicine; ATTEND Internal Medicine
PROC: 5A12012 Performance of Cardiac Output, Single, Manual (ICD-10-PCS; principal; 2022-04-16)
PROC: 5A1935Z Respiratory Ventilation, Less than 24 Consecutive Hours (ICD-10-PCS; 2022-04-16)
PROC: 0BH17EZ Insertion of Endotracheal Airway into Trachea, Via Natural or Artificial Opening (ICD-10-PCS; 2022-04-16)
PROC: 02HV33Z Insertion of Infusion Device into Superior Vena Cava, Percutaneous Approach (ICD-10-PCS; 2022-04-16)
DX: I21.4 Non-ST elevation (NSTEMI) myocardial infarction (principal); I50.21 Acute systolic (congestive) heart failure; J96.00 Acute respiratory failure, unspecified whether with hypoxia or hypercapnia; S06.9XAA Unspecified intracranial injury with loss of consciousness status unknown, initial encounter; F13.20 Sedative, hypnotic or anxiolytic dependence, uncomplicated; J44.1 Chronic obstructive pulmonary disease with (acute) exacerbation; K56.7 Ileus, unspecified; J44.0 Chronic obstructive pulmonary disease with (acute) lower respiratory infection; N17.9 Acute kidney failure, unspecified; I46.9 Cardiac arrest, cause unspecified; E11.65 Type 2 diabetes mellitus with hyperglycemia; K76.9 Liver disease, unspecified; F41.9 Anxiety disorder, unspecified; F32.A Depression, unspecified; Z20.822 Contact with and (suspected) exposure to COVID-19; Z88.0 Allergy status to penicillin; Z79.899 Other long term (current) drug therapy; Z85.9 Personal history of malignant neoplasm, unspecified; Z82.49 Family history of ischemic heart disease and other diseases of the circulatory system; Z83.3 Family history of diabetes mellitus
CPT/HCPCS: 36415; 36600; 71045; 76700; 80048; 80053; 80202; 81001; 82150; 82248; 82805; 82962; 82977; 83605; 83615; 83690; 83735; 83930; 84100; 85007; 85025; 85027; 85610; 87040; 87070; 87077; 87086; 87186; 87205; G0378; J1815; J2185; J7060; P9047